=== PATIENT | male | born 1960 | race Caucasian/White ===

== ENCOUNTER → 2023-11-23 | Outpatient (CLI) | payer BC, SELFPAY | END | disposition home or self-care (01) | LOC: LABSPEC 14:10 | PROVIDERS: PCP Physician Assistant; Referring Provider Surgery; Visit Provider Surgery | DX: Z01.818 Encounter for other preprocedural examination (principal); K42.9 Umbilical hernia without obstruction or gangrene | CPT/HCPCS: 87081 ==

== ENCOUNTER 2024-01-14 05:41 | Day surgery (SDC) | payer OTHER, SELFPAY ==
[2024-01-04 08:31] LABS: Hemoglobin A1c 7.4 % (3.8-5.6)
[2024-01-04 08:36] LABS: Anion Gap 4 (5-15); BUN 17 mg/dL (7-18); BUN/Creat Ratio 19.4 RATIO (10-20); Calcium,Total 9.1 mg/dL (8.5-10.1); Chloride 105 mmol/L (98-107); Creatinine, Serum 0.88 mg/dL (0.70-1.30); EST Glomerular Filtration Rate 94 mL/min (>60); Est Glom Filt Rate - Afr Amer 114 mL/min (>60); Glucose 159 mg/dL (74-106); Potassium 3.6 mmol/L (3.5-5.1); Sodium Level 141 mmol/L (136-145)
[2024-01-14] VITALS (9 sets, daily range): BP systolic 94–137; BP diastolic 61–89; PULSE 68–77; RESP 16–18; TEMP 36.1–36.4; O2SAT 94–96; BMI 43.2
[2024-01-14] MEDS: Lactated Ringers 1,000 ML 15 ML IV (06:32)
[2024-01-14 06:53] LABS: Bedside Glucose 166 mg/dL (74-106)
--- NOTE | 2024-01-14 07:28 | PCM.HP.BLA ---
History and Physical Date of Admission: 01/14/24 Date of Service: 11/09/23 MR#: [id number] Acct: [id number] Name: CADE ALANIS Rep #: [id number] : 1960 Provider: Dr. Vamsi Rosenbaum MD Age/Sex: 63/M Location: [facility] Status: Signed Intake Vital Signs 10/05/2309:23 Height 5 ft 8 in Weight: 279 lb 2 oz BMI 42.4 BP 133/84 H Blood Pressure Location Rt brachial Position Sitting Respiration 18 Pulse 63 Pulse Source Monitor Temp 97.7 F L Temp Source Temporal Pulse Oximetry (%) 96 Oxygen Delivery Method room air Intake Visit Reasons: [address]/UMBILICAL HERNIA Chief Complaint: umbilical hernia Substance Abuse Prevention Coordinator Required: No Is patient in pain?: No Allergies No Known Allergies Allergy (Verified 11/09/23 08:43) Medications montelukast 10 mg tablet 10 mg PO DAILY 12/16/16 [History Confirmed 11/09/23] hydrochlorothiazide 25 mg tablet 25 mg PO DAILY 12/17/16 [History Confirmed 11/09/23] amlodipine 5 mg tablet 5 mg PO DAILY 10/05/23 [History Confirmed 11/09/23] atorvastatin 10 mg tablet 10 mg PO DAILY 10/05/23 [History Confirmed 11/09/23] empagliflozin 10 mg tablet (Jardiance) 10 mg PO DAILY 10/05/23 [History Confirmed 11/09/23] metformin 500 mg tablet 500 mg PO BID 10/05/23 [History Confirmed 11/09/23] olmesartan 20 mg tablet 20 mg PO DAILY 10/05/23 [History Confirmed 11/09/23] potassium chloride 10 mEq capsule,extended release 10 meq PO DAILY 10/05/23 [History Confirmed 11/09/23] sitagliptin phosphate 100 mg tablet (Januvia) 100 mg PO DAILY 10/05/23 [History Confirmed 11/09/23] FOR[facility]LY [facility], [facility] Medical History (Updated 11/09/23 @ 18:[address] Vamsi Rosenbaum MD) Umbilical hernia Family History Father Enlarged heart Social History Smoking Status: Never smoker alcohol intake: never substance use type: does not use HPI HPI HPI: Patient is a 63-year-old male who presents for surgical consultation on umbilical hernia. His initial surgical consultation was made 10/05/2023. Out of that consultation we decided to hold a follow-up visit for any questions as well as arrange for repeat CT imaging. This was completed on 10/17/2023. In the interim Mr. Alanis denies any change to his level of discomfort from this hernia. He also denies any health changes more generally. He does share that he discuss possible hernia repair with his employer and that they were receptive. Below is recapitulated from patient's prior visit for ease of review: Patient is a 62-year-old male who presents for surgical consultation on a umbilical hernia. He is referred from Dr. Menezes. This finding was first noticed by patient quite a long time ago. He then estimates that it has been at least 10 years. He presents today because he is noted that it is slowly getting bigger and he finds it unsightly. Patient is not able to recall how this occurred. He shares that over the course of these 10 years there have been only a couple of times with pain. He is simply bothered by no it is there. He shares that previously his work demanded much more physical activity but of late there is not much lifting required. He works driving trucks and pulling mobile homes. He denies any negative effects to his bowels. He is a non-smoker. He denies any history of skin infections. He states that his weight has come down a few pounds overall and that his previous weight was closer to 300 pounds. He has a history of hypertension and diabetes but reports that the latter is well-controlled with an A1c of 7.1 collected recently. He notes that although he is less active at work he remains active at home doing yard work. Pertinent surgical history includes: None ROS Endo Endocrine: Yes diabetes mellitus Cardio Cardiovascular: Yes high blood pressure Resp Respiratory: Yes shortness of breath and Yes asthma Exam Const General: cooperative Nutritional Appearance: average body habitus and well nourished Orientation: alert and awake GI Other: Nondistended, soft, stable appearance of umbilical hernia which is at least partially reducible with minimal tenderness. Assessment and Plan Assessment and Plan (1) Umbilical hernia: Status: Chronic Comment: Patient is a 62-year-old male with past medical history of hypertension, controlled diabetes, obesity, and umbilical hernia. He denies any significant symptoms but is bothered by its appearance and some growth. Therefore, he requests evaluation for operative repair. By exam this hernia appears to be chronically incarcerated with fat and I am unable to elicit an exact size of the fascial defect. It was seen [address] imaging and at that time the defect measured 2.8 x 2.2 cm in diameter. I held a lengthy conversation with Mr. Alanis that I would like to offer him a minimally invasive repair with wide mesh overlap, but do have some concerns regarding his risk for recurrence related to his present body mass index. He carries his additional weight within his abdomen and if we could strive for a BMI of 40 or less this would be beneficial to reducing his risk for recurrence. Mr. Alanis relayed some concerns and hesitations about the use of mesh, but I took time to explain the history of mesh use and hernia repairs and its function, necessarily, and distributing the force across a hernia closure. He expressed understanding of this information and appreciation for the detail. At this time I do not believe we need to pursue urgent repair and instead wished to obtain updated CT imaging and sit down with Mr. Alanis in approximately 1 month's time to reassess his interest in pursuing operative repair. He expresses enthusiasm at this suggestion stating this will give him time to discuss the postoperative lifting restrictions with his employer. Patient is now 63 and denies any changes to the above health history. He did complete his CT imaging as requested and this shows evidence of a 3.5 x 2 cm umbilical hernia defect containing fat. I have shared with Mr. Alanis that this represents a defect that would be able to accommodate small bowel and I thus recommend repair sooner than later. I did share with him that the omental plugging is serving a beneficial role at this point. The details of a minimally invasive repair were discussed with patient and all questions were answered. I was careful to reiterate the expectation for no lifting more than 10 pounds for 5 weeks postoperatively. Patient states that he will have to discuss things further with his employer, but does have engagements until December 07 that preclude going forward with surgery at this point. We will plan to correspond via telephone to set a final date. I have examined the patient and the H&P has been reviewed. There are no clinical changes since date of exam. Patient confirms that his health history remains unchanged and that his hernia has not been particularly bothersome. It is more reddened on exam today but he remains otherwise benign for his abdominal exam. Procedure and post procedure expectations?including activity restrictions?were reviewed with patient and his . They deny any further questions. Will now proceed to the operating room for planned robot-assisted umbilical hernia repair with mesh.
[2024-01-14] MEDS: Cefazolin 3 GM in 0.9% Normal Saline (100mL Bag) 100 ML IV (07:32)
[2024-01-14] MEDS: Bupivacaine 0.25% 30 ML Vial (08:08)
[2024-01-14] MEDS: BUPIVACAINE LIPOSOME/PF 20 ML VIAL OPERA.SITE (08:08)
[2024-01-14] MEDS: 0.9% Normal Saline (Pres. free 10 ML Vial (08:08)
--- NOTE | 2024-01-14 10:24 | OP.PCM_ITS ---
Report of Operation Date of Procedure: 01/14/24 Pre-Operative Diagnosis: Umbilical hernia Post-Operative Diagnosis: Umbilical hernia with chronically incarcerated fat (omentum) Surgery/Procedure Performed:: 1. Robot-assisted transabdominal preperitoneal umbilical hernia repair with mesh 2. Transversus abdominis plane block Surgeon: Vamsi Rosenbaum refinery operator: Chyna Spivey Type of Anesthesia: General/Supplemental Anesthesiologist: Marcos Cantrell Specimen's removed: None Estimated Blood Loss (mL): 10 Description of Procedure: After appropriate identification in the preoperative holding area, the patient was brought to the operating room suite where he was positioned supine the operating table. Preoperative antibiotics were administered. Patient was then induced with a general anesthetic. Patient's abdomen was prepped and draped in the usual sterile fashion. During this preparation a bump was placed under patient's left hip and the operating room table was broken to facilitate greater access to the intra-abdominal wall. A formal timeout followed to confirm patient and procedure. Procedure was begun with a Veress entry at Vigil's point. Once the set point pressure was reached, this Veress needle was exchanged for an optical trocar and an optical entry was made in this location. Laparoscopic investigation revealed no inadvertent injury to the viscera below. 2 additional 8 mm robotic trochars were placed along the abdominal wall laterally taking care to avoid the bony prominences of the costal margin and the ASIS. A bilateral transversus abdominis plane block was created with a mixture of bupivacaine, saline, and Exparel under laparoscopic vision as these ports were placed. The robot was then brought in and docked in standard fashion. Robotically a peritoneal flap was raised approximately 2 cm medial from my trochars and carried this away towards the contralateral abdominal wall. Great care was taken to lower the peritoneum off of the posterior rectus sheath and avoid any rents in the peritoneal flap. Despite this care 2 small rents were created and the very thin peritoneum overlying the patient's oblique musculature. Perforating vessels were sealed with bipolar energy to maintain hemostasis as this flap dissection proceeded. I then addressed the hernia directly by opening the scar tissue about the hernia sac and carefully applying manual traction downward until the hernia was fully reduced. A large quantity of chronically incarcerated preperitoneal and omental fat was encountered. The hernia defect was measured at just over 2 cm in diameter and this measurement was used to call for the appropriate mesh size as well as ensure adequate dissection. The flap was then further dissected laterally until it appeared we had adequate width. The hernia defect was closed with a #1 stratafix suture by running the fascial defect closed and then running the suture back upon itself. Next a 8 x 10 cm ProGrip mesh was introduced to the peritoneum along with 3 oh Vicryl suture. This Vicryl suture was used to tack the mesh in an interrupted fashion along patient's midline to help ensure ingrowth of the mesh and stable positioning of the mesh as the peritoneal flap was closed down. Lastly the peritoneum was closed with 2x3-0 V-Loc sutures to run close the initial peritoneal rent as well as the small rent directly overlying the hernia sac defect. The robot was then undocked and the trocars were removed. Additional local anesthetic was instilled and the port sites were closed with interrupted 4-0 Monocryl in subcuticular fashion. Steri-Strips and OpSite dressings were applied. Patient was transferred to PACU for ongoing care. Grafts/Implants Used: Covidien Progrip LOT [id number], reference [id number] Complications None Admit VTE Documentation VTE Mechan Device Prophylaxis: SCD's Procedures Digestive 40xxx-49xxx: 35479 RPR AA HRN 1ST < 3 CM RDC
--- NOTE | 2024-01-14 10:28 | DCINST_ITS ---
Discharge Instructions Diet Discharge Diet: No restrictions Activity Discharge Activity: May Not Drive (While taking narcotic pain medication) and May Shower May shower in (days): 2 Ice area for (Minutes): 20 Lifting Restrictions: No lifting greater than 10 pounds for the next 5 weeks Dressing / Incision Call your doctor if your incision/area has: Continuous Slow Oozing, Increased Pain/ Swelling, Increased Redness, Foul Smelling Discharge and Swelling at the incision site Call your doctor if you observe: Fever of 101 or Higher, Inability to urinate and Inability to have a bowel movement Change Dressing in: 2 days (Please leave Steri-Strips intact until they fall off spontaneously or are taken off at your follow-up visit) Remove Dressing in: 2 days Cleanse incision/area with: Soap & Water and Keep Dressing Clean & Dry Follow Up Care Please Follow Up With: Vamsi Rosenbaum MD When: 1 week postop Test Results: Test results from this visit will be discussed in further detail at your follow- up appointment, if applicable. Discharge Plan Admission Primary Reason for Your Visit: Repair of umbilical hernia Attending Provider: Vamsi Rosenbaum Primary Care Provider: Christiana Paez Discharge Orders/Prescriptions Prescriptions: New oxycodone 5 mg tablet 5 mg PO Q6H PRN (Reason: pain) 3 Days Qty: 10 0RF Continued olmesartan 20 mg tablet 20 mg PO DAILY metformin 500 mg tablet 500 mg PO BID potassium chloride 10 mEq capsule, extended release 10 meq PO DAILY atorvastatin 10 mg tablet 10 mg PO QHS Januvia 100 mg tablet 100 mg PO DAILY Jardiance 10 mg tablet 10 mg PO DAILY amlodipine 5 mg tablet 5 mg PO DAILY montelukast 10 MG tablet 10 mg PO QHS hydrochlorothiazide 25 MG tablet 25 mg PO DAILY aspirin 81 mg tablet,delayed release (DR/EC) 81 mg PO DAILY albuterol 90 mcg/actuation aerosol 90 mcg inhalation PRN PRN (Reason: SOB) Referrals / Follow Up: Christiana Paez PA [Primary Care Provider] - Disposition Disposition (needs filled in before D/C Order can be placed): Home, Self Care
== END 2024-01-14 12:53 | disposition home or self-care (01) ==
LOC: SDC 05:45 → AC 05:57
PROVIDERS: Anesthesiology; PCP Physician Assistant; Referring Provider Surgery; Visit Provider Surgery
PROC: (CPT 49592; principal; 2024-01-14 07:10)
DX: K42.9 Umbilical hernia without obstruction or gangrene (principal); E11.40 Type 2 diabetes mellitus with diabetic neuropathy, unspecified; Z79.84 Long term (current) use of oral hypoglycemic drugs; E66.9 Obesity, unspecified; I10 Essential (primary) hypertension; Z79.85 Long-term (current) use of injectable non-insulin antidiabetic drugs; Z79.899 Other long term (current) drug therapy; Z79.82 Long term (current) use of aspirin; J45.909 Unspecified asthma, uncomplicated; E78.00 Pure hypercholesterolemia, unspecified
CPT/HCPCS: 49592; S2900; 00832; 36415; 80048; 82962; 83036; 93005; J7120; J2405; J3490

== ENCOUNTER → 2024-11-04 | Outpatient (CLI) | payer OTHER, SELFPAY ==
[2024-11-04 12:32] LABS: Absolute Lymphocyte Count 2.17 X10^3/uL (0.83-4.51); Absolute Neutrophil Count 4.3 X10^3/uL (2.0-7.7); Basophil# 0.11 X10^3/uL; Basophil% 1.3 % (0-1); Eosinophil# 0.76 X10^3/uL; Eosinophils% 9.2 % (0-5); Hematocrit 46.5 % (40-54); Hemoglobin 15.5 g/dL (13.0-16.5); Lymphocyte # 2.17 X10^3/ul (0.83-4.51); Lymphocyte % 26.4 % (19-41); Mean Corp Hgb Conc 33.3 g/dL (32-36); Mean Corpuscular Hgb 29.6 pg (27.0-32.0); Mean Corpuscular Volume 88.9 fL (80-94); Mean Platelet Vol. 10.4 fl (6.2-12.0); Monocyte# 0.84 X10^3/uL; Monocyte% 10.2 % (0-10); NRBC Flagged by Analyzer 0 % (0-5); Neutrophil # 4.32 X10^3/uL (2.7-7.7); Neutrophil % 52.5 % (47-70); Platelet Count 299 K/mm3 (150-450); RBC Distribution Width CV 12.8 % (11.6-14.6); RBC Distribution Width SD 41.1 fl (35.1-43.9); Red Blood Count 5.23 M/mm3 (4.6-6.2); White Blood Count 8.2 K/mm3 (4.4-11.0)
[2024-11-04 12:40] LABS: Hemoglobin A1c 8.3 % (3.8-5.6)
[2024-11-04 13:29] LABS: ALB/GLOB Ratio 1.1 RATIO (0.9-2.4); AST(SGOT) 24 U/L (15-37); Alanine Aminotransfer ALT/SGPT 54 U/L (16-61); Albumin, Serum 3.9 g/dL (3.2-5.0); Alkaline Phosphatase 65 U/L (45-117); Anion Gap 3 (5-15); BUN 17 mg/dL (7-18); Calcium,Total 9.5 mg/dL (8.5-10.1); Chloride 104 mmol/L (98-107); Creatinine, Serum 0.81 mg/dL (0.70-1.30); EST Glomerular Filtration Rate 103 mL/min (>60); Est Glom Filt Rate - Afr Amer 124 mL/min (>60); Globulin 3.7 g/dL (2.2-4.2); Glucose 147 mg/dL (74-106); Potassium 3.7 mmol/L (3.5-5.1); Protein, Total 7.6 g/dL (6.4-8.2); Sodium Level 137 mmol/L (136-145)
== END | disposition home or self-care (01) ==
PROVIDERS: PCP Physician Assistant; Referring Provider Clinical Nurse Specialist Adult Health; Visit Provider Clinical Nurse Specialist Adult Health
DX: E11.9 Type 2 diabetes mellitus without complications (principal); M54.32 Sciatica, left side

== ENCOUNTER → 2025-05-08 | Outpatient (CLI) | payer OTHER, SELFPAY ==
[2025-05-08 12:50] LABS: Hematocrit 46.1 % (40-54); Hemoglobin 15.5 g/dL (13.0-16.5); Immature Granulocytes Count 0.030 X10^3/uL (0.0-0.0); Mean Corp Hgb Conc 33.6 g/dL (32-36); Mean Corpuscular Volume 87.5 fL (80-94); Mean Platelet Vol. 10.7 fl (6.2-12.0); NRBC Flagged by Analyzer 0 % (0-5); Platelet Count 254 K/mm3 (150-450); RBC Distribution Width CV 13.1 % (11.6-14.6); RBC Distribution Width SD 41.7 fl (35.1-43.9); Red Blood Count 5.27 M/mm3 (4.6-6.2); White Blood Count 7.5 K/mm3 (4.4-11.0)
[2025-05-08 13:48] LABS: Creatinine, Urine (random) 170.00 mg/dL (39.00-259.00); Microalbumin,Random Urine 17.3 mg/L (<20 mg/L)
[2025-05-08 14:14] LABS: AST(SGOT) 33 U/L (<=37); Alanine Aminotransfer ALT/SGPT 54 U/L (<=46); Albumin, Serum 4.4 g/dL (3.4-4.8); Alkaline Phosphatase 60 U/L (40-129); Anion Gap 12 (5-15); BUN 15 mg/dL (4-19); BUN/Creat Ratio 19.4 RATIO (10-20); Calcium,Total 9.2 mg/dL (7.6-11.0); Carbon Dioxide 25.4 mmol/L (21.0-32.0); Chloride 102 mmol/L (98-108); Cholesterol 114 mg/dL (<=200); Globulin 2.8 g/dL (2.2-4.2); Glucose 137 mg/dL (70-99); Low Density Lipoprotein Calc. 49 mg/dL; Magnesium 2.2 mg/dL (1.5-2.2); PSA,Total- Diagnostic 1.36 ng/mL (0.00-4.00); Potassium 3.7 mmol/L (3.3-5.1); Triglycerides 116 mg/dL; Very Low Density Lipoprotein 23 mg/dL (5-40); Vitamin D,25 Hydroxy 39.6 ng/mL (30-100); cholesterol:hdl ratio screen 2.73
== END | disposition home or self-care (01) ==
LOC: LAB 11:50
PROVIDERS: PCP Physician Assistant; Referring Provider Clinical Nurse Specialist Adult Health; Visit Provider Clinical Nurse Specialist Adult Health
DX: C61 Malignant neoplasm of prostate (principal); E11.65 Type 2 diabetes mellitus with hyperglycemia; E78.5 Hyperlipidemia, unspecified; J45.20 Mild intermittent asthma, uncomplicated; I10 Essential (primary) hypertension; E55.9 Vitamin D deficiency, unspecified
CPT/HCPCS: 36415; 80053; 80061; 82043; 82306; 82570; 83036; 83735; 84153; 85025